=== PATIENT | female | born 2000 | race African-American/Black ===

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

== ENCOUNTER → 2021-12-02 | Outpatient (CLI) | payer OTHER | LOC: LAB 17:38 | DX: J02.9 Acute pharyngitis, unspecified (principal) ==

== ENCOUNTER 2022-07-13 15:08 | Emergency (ER) | payer OTHER ==
[~2022-07-13] VITALS: Ht 160 cm; Wt 63.6 kg
[2022-07-13] MEDS ORDERED: NIKKI1 TAB PO (15:18)
[2022-07-13] MEDS ORDERED: LEXAPRO 10MG10 MG PO (15:18)
[2022-07-13 15:58] LABS: BASO # 0.02 K/mm3 (0.02-0.10); EOS # 0.08 K/mm3 (0.04-0.40); EOS % 1.5 % (0.1-4.0); HEMATOCRIT 38.8 % (35.0-45.0); HEMOGLOBIN 13.1 g/dL (12.0-15.0); LYMPH# 1.85 K/mm3 (1.20-3.40); MEAN CELL VOLUME 84 fl (78-95); MEAN CORPUSCULAR HEMOGLOBIN 28 pg (26-32); MEAN CORPUSCULAR HGB CONC 34 g/dL (33-37); MEAN PLATELET VOLUME 9.9 fl (7.4-10.4); MONO # 0.55 K/mm3 (0.10-0.60); PLATELET COUNT 361 K/mm3 (130-400); RED BLOOD COUNT 4.61 M/mm3 (4.10-5.30); RED CELL DISTRIBUTION WIDTH 13.9 % (11.5-14.5); WHITE BLOOD COUNT 5.4 K/mm3 (4.8-10.8)
[2022-07-13 16:07] LABS: ALBUMIN 3.9 g/dL (3.5-5.0)
[2022-07-13 16:09] LABS: CALCIUM 9.2 mg/dL (8.3-10.5)
[2022-07-13 16:10] LABS: TOTAL PROTEIN 7.3 g/dL (6.4-8.3)
[2022-07-13 16:12] LABS: TOTAL BILIRUBIN 0.5 mg/dL (0.2-1.2)
[2022-07-13 16:35] LABS: URINE APPEARANCE CLEAR; URINE BILIRUBIN NEGATIVE (NEGATIVE); URINE BLOOD NEGATIVE (NEGATIVE); URINE COLOR YELLOW; URINE GLUCOSE NEGATIVE (NEGATIVE); URINE KETONE NEGATIVE (NEGATIVE); URINE LEUKOCYTE ESTERASE NEGATIVE (NEGATIVE); URINE NITRATE NEGATIVE (NEGATIVE); URINE PROTEIN(semi-quant) NEGATIVE (NEGATIVE); URINE WBC 0-1 /hpf (0-3)
[2022-07-13 18:46] VITALS: BP 127/72
== END 2022-07-13 18:48 | disposition home or self-care (01) ==
LOC: ED 15:08
PROVIDERS: Nurse Practitioner
DX: R10.11 Right upper quadrant pain (principal); Z32.02 Encounter for pregnancy test, result negative; Z28.310 Unvaccinated for COVID-19; Z20.822 Contact with and (suspected) exposure to COVID-19